=== PATIENT | female | born 1995 | race Caucasian/White ===

== ENCOUNTER 2020-04-28 10:30 | Inpatient (IN) | payer SELFPAY ==
[2014-04-05 14:41] VITALS: BMI 19.5
[2020-04-28] VITALS (52 sets, daily range): BP systolic 100–129; BP diastolic 54–83; PULSE 45–102; TEMP 36.4–37.1; O2SAT 91–100; BMI 25.6
[2020-04-28] MEDS: Lactated Ringers 1,000 ML 50 ML IV (11:00)
[2020-04-28 11:35] LABS: Absolute Lymphocyte Count 1.34 X10^3/uL (0.83-4.51); Absolute Neutrophil Count 7.4 X10^3/uL (2.0-7.7); Basophil# 0.04 X10^3/uL; Basophil% 0.4 % (0-1); Eosinophil# 0.02 X10^3/uL; Eosinophils% 0.2 % (0-5); Hematocrit 40.5 % (37-47); Hemoglobin 13.4 g/dL (12.0-15.0); Lymphocyte # 1.34 X10^3/ul (4.0); Lymphocyte % 14.1 % (19-41); Mean Corp Hgb Conc 33.1 g/dL (32-36); Mean Corpuscular Hgb 29.5 pg (27.0-32.0); Mean Platelet Vol. 11.8 fl (6.2-12.0); Monocyte% 6.3 % (0-10); NRBC Flagged by Analyzer 0 % (0-5); Neutrophil # 7.42 X10^3/uL (2.7-7.7); Neutrophil % 78.2 % (47-70); Platelet Count 173 K/mm3 (150-450); RBC Distribution Width CV 13.5 % (11.6-14.6); RBC Distribution Width SD 43.8 fl (35.1-43.9); Red Blood Count 4.55 M/mm3 (4.2-5.4); White Blood Count 9.5 K/mm3 (4.4-11.0)
--- NOTE | 2020-04-28 11:53 | HP.PCM_ITS ---
- Problem List (1) History of depression Status: Acute (2) History of anxiety Status: Acute (3) with 38 completed weeks gestation Status: Acute History Date of Admission: 04/28/20 Final JOSE: 05/07/20 Gestational age: 38 Weeks and 5 Days History of this : This is a 25 year-old, G [1], P [0], at 38.5 weeks gestation that presents for contractions starting last night and mild vaginal bleeding. Had intercourse last night and began cramping after. Had small amount of spotting and continued contractions this morning. Reports increasing pain and intensity with contractions. CE in triage this morning was 1cm/80/-1 and after watchful waiting made change to 3/85/-1. Positive movement. Uncomplicated course. Patient and would like minimal interventions and would like labor to progress naturally. Patient denies any fever, cough, shortness of breath. Denies any contact with COVID 19 positive individuals for herself or . Allergies No Known Allergies Allergy (Verified 04/13/20 12:38) Home Medications: Home Medications Lactobacillus Acidophilus [Acidophilus] 1 tablet PO DAILY 04/05/14 [place]-3 Fatty Acids/Fish Oil [[place] 3 Fish Oil Softgel] 1 each PO DAILY 04/05/14 Vits [Prenatabs FA] 1 tab PO DAILY 04/28/20 Smoking Status: Never smoker Alcohol: None NST - FHR Rate Baby A Baseline: 130 Variability:: Moderate Accelerations:: None Decelerations:: None NST Reactive:: Yes FHR Category:: Category I Uterine Activity:: Contractions every 2-4 minutes via TOCO History Past Pregnancies: Past Pregnancies Delivery Date Name GA/ Weeks Outcome Route Wt Sex Labor Length Anesthesia Delivery Location Provider FOB Labs: O negative Rubella non-immune Hep B- negative GBS negative 1 hr GCT normal HIV negative GC/CT negative Expected Delivery Method: Spontaneous Vaginal Review of Systems Constitutional: Denies: Chills, Fever, Weight Change Eyes: Denies: Blurred vision, Pain, Vision Change HEENT: Denies: Head Aches Cardiovascular: Denies: Chest Pain Respiratory: Denies: Cough, Shortness of Breath Gastrointestinal: Denies: Abdominal Pain Genitourinary: Denies: Dysuria Psychiatric: Reports: Anxiety - History of anxiety and depression, no medications for 2 years, Depression Hematologic/ Lymphatic: Denies: Easy Bleeding Physical Exam Vitals: Vital Signs Temp Pulse BP Pulse Ox 98.7 F 64 112/67 98 04/28/20 07:25 04/28/20 11:21 04/28/20 11:21 04/28/20 07:28 General: Alert, Oriented x3 Cardiovascular: Regular rate Lungs: Clear to auscultation, Normal air movement Abdomen: Soft, Non Tender Neurological: Cranial nerves II-XII grossly intact Estimated gestational size: Appropriate for gestational size Presentation: Cephalic - patient appears anxious Cervix Dilation (cm): 3 Station: -1 Effacement (%): 80 Assessment/Plan All Active Problems (This Medical Record has been edited. Action required.) History of depression (Acute) History of anxiety (Acute) with 38 completed weeks gestation (Acute) This is a 25 year-old, G [1], P [0], at 38.5 weeks gestational age with cervical change in early labor. Category 1 FHT P: Admit to labor and delivery Routine labs- GBS negative IV fluids per protocol Epidural for pain relief if patient desires Declines LARC Declines COVID 19 rapid screening. Patient aware that she will have to wear a mask at all time throughout stay. Voiced understanding. Did not want test due to hearing it was painful. Dr. Felton notified of admission to labor and delivery and is collaborating physician. Procedure Criteria COVID Risk Discussion: Declines COVID 19 rapid screening test due to pain during swab. Patient aware that she will be required to wear mask entire stay at hospital. Patient voices understanding.
--- NOTE | 2020-04-28 12:36 | PCM.PN.BLA ---
Progress Note Patient seen at bedside. Discussed plan of care. Patient desires minimal interventions and would like to allow labor pattern naturally. Unsure of pain control options but open to assistance. Patient wearing mask due to refusal of COVID 19 screening. Patient does not want screening due to pain of swab. Category I FHT Contractions 2-4 minutes palpating moderate A/P Continue with plan of care Epidural if desires Anticipate STROKE Vital Signs/Narrative: Vital Signs Pulse BP 04/28/20 11:21 64 112/67
--- NOTE | 2020-04-28 14:07 | PCM.PN.BLA ---
Progress Note Patient tearful and stated becoming more painful with contractions. Still requesting low interventions if possible. After a lot of reassurance and education, patient able to discuss plan of care. CE- 4/80/-1 able to palpate bag of water A/P at 38.5 gestation in early labor Continue plan of care with minimal interventions Discussed trying nipple stimulation at this time to assist with contraction pattern Will recheck in 3 hours and if no change will discuss possible A.R.O.M or Pitocin IV Epidural if indicated Plan of care discussed with Dr. Felton via phone and agrees STROKE Vital Signs/Narrative: Vital Signs Pulse BP 04/28/20 13:13 83 113/76 04/28/20 11:21 64 112/67
--- NOTE | 2020-04-28 20:15 | PCM.PN.BLA ---
Progress Note S:Patient up ambulating in room. Stated contractions feel more intense but still able to breathe through them with support from . O:Patient breathing well through contractions, tolerating CE well Category 1 tracing Contractions palpate moderate-strong CE- 7/90/0 bulging bag A/P Active Spontaneous labor Epidural placement if indicated Discussed NCB vs Epidural and patient wishes to think about NCB Continue with plan of care, minimal interventions Anticipate Dr. Felton updated and agrees with plan of care STROKE Vital Signs/Narrative: Vital Signs Temp Pulse BP Pulse Ox 04/28/20 19:16 98.1 F 51 L 121/60 H 100 04/28/20 18:19 85 112/78 04/28/20 17:12 61 106/70 04/28/20 17:11 97 04/28/20 16:20 113/82 H 100
[2020-04-28] MEDS: Lactated Ringers 500 ML 999 ML IV (20:25)
[2020-04-28] MEDS: fentaNYL-bupivacaine (epidural) 100 ML BAG EPIDURAL (21:03)
[2020-04-29] VITALS (43 sets, daily range): BP systolic 95–179; BP diastolic 54–80; PULSE 50–150; RESP 14–18; TEMP 36.5–37.1; O2SAT 96–99
[2020-04-29] MEDS: Lactated Ringers 1,000 ML 200 ML IV (01:03)
[2020-04-29] MEDS: Oxytocin 30 units/NS 500 ml 30 UNITS/500 ML IV.SOLN 334 UNITS IV (04:10)
--- NOTE | 2020-04-29 04:49 | PCM.OPRPT ---
Problem List (1) History of depression Status: Acute (2) History of anxiety Status: Acute (3) with 38 completed weeks gestation Status: Acute Report of Operation Date of Procedure: 04/29/20 Pre-Operative Diagnosis: Spontaneous labor, Term gestation Post-Operative Diagnosis: Same, with viable female infant Surgery/Procedure Performed:: - Complications none Vaginal Delivery Maternal Presentation: Active Labor 38.6 weeks gestation with contractions and vaginal spotting. Came into triage and made cervical change. Amniotic Membrane Rupture Type: Spontaneous Rupture of Membrane time: 350 Amniotic Fluid Description: Clear Final JOSE: 05/07/20 Final JOSE Source: US <20 weeks Gestational age: 38 Weeks and 6 Days Date of Procedure: 04/29/20 Pre-Operative Diagnosis: Spontaneous labor, Term gestation Post-Operative Diagnosis: same with viable female infant Surgery/ Procedure Performed: Spontaneous Vaginal Delivery Type of Anesthesia: Epidural Description of Procedure: Patient complete and began pushing. Amniotic sac still intact throughout pushing. S.R.O.M for large amount of clear fluid. Head delivered without difficulty, followed by anterior, then posterior shoulder. Vigorous female delivered without any force or delay over intact perineum. Infant placed immediately on maternal abdomen. The umbilical cord was clamped and cut after 90 second delay. The placenta was removed spontaneously with active management of third stage. Placenta was small, but normal appearing and intact with 3 vessel cord. Fundus was firm and bleeding was hemostatic. Right labial laceration repaired with 2-0 vicryl. Vaginal sweep was performed. Instruments and lap counts were correct. Presentation: Vertex, HUI Placental Delivery Description: Spontaneous Placenta Disposition: [facility] Cord Vessel Description: 3 Vessels Cord Entanglement: None Estimated Blood Loss: 250 (1 minute): 8 (5 minute): 9 Episiotomy Description: None Laceration: Vaginal Extension/lac - right labial laceration Medications given after delivery: IV Pitocin
[2020-04-29] MEDS: Ibuprofen 600 MG Tablet PO (20:30)
[2020-04-30] VITALS (8 sets, daily range): BP systolic 100–115; BP diastolic 63–73; PULSE 52–75; RESP 14–18; TEMP 36.9–37.1; O2SAT 97
--- NOTE | 2020-04-30 08:00 | NURSING ---
Patient declines administration of MMR vaccine. Given VIS information.
--- NOTE | 2020-04-30 08:42 | PCM.PN.OB ---
Patient Problems: Active and Suspected Problems (This Medical Record has been edited. Action required.) History of depression (Acute) History of anxiety (Acute) with 38 completed weeks gestation (Acute) Subjective: pain well controlled, average lochia, no N/V. Denies COBB or visual changes - Physical Exam Vitals/I&O's: Vital Signs Temp Pulse Resp BP Pulse Ox 98.6 F 56 L 14 115/71 99 04/30/20 03:50 04/30/20 03:50 04/30/20 03:50 04/30/20 03:50 04/29/20 06:25 Oxygen Delivery Method Room Air Weight: 61.507 kg Body Mass Index (BMI) 25.6 Intake and Output for Last 24 Hours 04/28/20 04/29/20 04/30/20 23:59 23:59 23:59 Intake Total 683.33 / 683.33 1940.00 / 1940.00 Output Total 2600 / 2600 1600 / 1600 Balance -1916.67 / -1916.67 340.00 / 340.00 General: Alert, Cooperative, No apparent distress Laboratory Results 04/29/20 08:20: Screen NEGATIVE, Baby's Blood Type A POSITIVE, Baby's YOSI NEGATIVE Current Medications Acetaminophen (Tylenol) 1,000 mg PO Q8H PRN PRN PRN Reason: Pain Score 1-3/10 Bisacodyl (Dulcolax) 10 mg RECTAL UD PRN PRN Reason: If no BM Dibucaine (Dibucaine) 1 applic TOPICAL TID PRN PRN; Protocol PRN Reason: Discomfort Hydrocortisone (Hytone) 1 applic TOPICAL TID PRN PRN; Protocol PRN Reason: Discomfort Ibuprofen (Motrin) 600 mg PO Q6H PRN PRN PRN Reason: Pain Score 1-3/10 Last Admin: 04/29/20 20:30 Dose: 600 mg Documented by: Methylergonovine Maleate (Methergine) 0.2 mg IM X1 PRN PRN Reason: Excess bleeding/uterine atony Ondansetron HCl (Zofran) 4 mg IV Q4H PRN PRN PRN Reason: Nausea Oxycodone HCl (Oxyir) 5 - 10 mg PO Q4H PRN PRN PRN Reason: Pain Score 4-10/10 Multivit/Folic Acid/Iron (Prenatabs Fa) 1 tablet PO DAILY KHUSHBU Last Admin: 04/29/20 11:23 Dose: Not Given Documented by: Senna/Docusate Sodium (Senokot-S, Jackie-Colace) 1 - 2 tablet PO DAILY PRN PRN PRN Reason: Constipation Simethicone (Mylicon) 80 mg PO PCHS PRN PRN Reason: Indigestion/Stomach pain Sodium Chloride () 5 - 15 ml IV UD PRN PRN Reason: SALINE FLUSH Medical Necessity - Tobacco Use Smoking Status: Never smoker Assessment/Plan All Active Problems (This Medical Record has been edited. Action required.) History of depression (Acute) History of anxiety (Acute) with 38 completed weeks gestation (Acute) PPD#1 doing well routine care likely home tomorrow is
--- NOTE | 2020-04-30 15:45 | DCINST_ITS ---
Discharge Diet: No Restrictions Discharge Activity: Return to Normal Activity, May not drive while taking narcotic pain medications., May Shower May resume sexual activity in: 4-6 weeks Additional Activity Instructions:: Nothing in the vagina for 4-6 weeks. You may return to work/school in 6 weeks. Call your doctor if your incision/area has: Continuous Slow Oozing, Sudden Increased Bleeding, Increased Pain/ Swelling, Increased Redness, Foul Smelling Discharge Additional Instructions: If you experience any of the following, contact your healthcare provider. * Bleeding that soaks a pad every hour for 2 hours * Fever 100.4 or higher * Unrelieved incision or abdominal pain * Swelling, redness, discharge or bleeding from your incision or episiotomy site * Your incision begins to separate * Problems urinating (including inability to urinate or burning while urinating). * Visual changes * Severe headache * Flu-like symptoms * Pain or redness in one of both of your breasts * Pain, warmth, tenderness or swelling in your legs, especially the calf area * Frequent nausea and vomiting * Symptoms of depression or anxiety If you experience any of the following, call 911 or go to the nearest Emergency Room. * Chest pain * Problems breathing * Seizure activity * Partial or complete paralysis of a body part, slurred speech, weakness or drooping of the face, or a sudden inability to walk or hold your balance Allergies/Adverse Reactions: Allergies No Known Allergies Allergy (Verified 04/13/20 12:38) Medications to take at Discharge Lactobacillus Acidophilus [Acidophilus] 1 tablet PO DAILY 04/05/14 [place]-3 Fatty Acids/Fish Oil [[place] 3 Fish Oil Softgel] 1 each PO DAILY 04/05/14 Vits [Prenatabs FA ] 1 tab PO DAILY 04/28/20 Ibuprofen [Motrin] 600 mg PO Q6H PRN #30 tab 04/30/20 The following prescriptions were given: Ibuprofen [Motrin] 600 mg PO Q6H PRN #30 tab PRN Reason: Pain Transmission Status: Pending to [facility] Please Follow Up With: Hoda Hogan, LORE - [phone] When: Call to make an appointment with your provider's office in 6 weeks. If you had elevated Blood Pressure or 4th degree laceration you will need to be seen in 2 weeks. Test Results: Test results from this visit will be discussed in further detail at your follow- up appointment, if applicable.
--- NOTE | 2020-04-30 18:00 | CASEMGMT ---
Social Work Brief Assessment - Labor and Delivery Unit Refer documentation below for further details. Date of Referral/Notification: 04/30/2020 Time of Referral: 17:45 Referred By: NURSE Reason for Referral: HISTORY DEPRESSION AND ANXIETY. FIRST TIME MOM Date of Intervention: 04/30/2020 Time of Intervention: 18:00 Informant: Medical record and mother of baby (MOB) Assessment: MET WITH MOB AND FATHER OF BABY (FOB) IN ROOM. MOB NURSING BABY GIRL, GOVIND UPON ENTERING ROOM. MOB AND FOB OK WITH COMPLETING ASSESSMENT AT THIS TIME. INTRODUCED ROLE AND REASON FOR REFERRAL. MOB SPOKE OPENLY ABOUT HISTORY ANXIETY/DEPRESSION. MOB REPORTS SHE AND FOB HAVE BEEN FOR 4 YEARS AND STARTED COUNSELING SHORTLY AFTER GETTING . MOB REPORTS STILL FOLLOWS WITH COUNSELOR AT [facility] AND HAS APPOINTMENT ALREADY SCHEDULED IN A FEW WEEKS. MOB AND FOB REPORT GOOD SUPPORT FROM FAMILY, FRIENDS, AND SMALL GROUP AT [facility]. FOB AND MOB REPORT FRIENDS AND FAMILY MEMBER RECENTLY HAVE HAD CHILDREN AND KNOW THEY CAN REACH OUT TO THEM IF NEEDED. MOB AND FOB REPORT TO HAVE ALL NEEDS MET FOR BABY. EDUCATION PROVIDED ON RESOURCES AND DISCUSSED HELP ME GROW. MOB AND FOB DECLINE NEED FOR REFERRALS AT THIS TIME. MOB AND FOB VERBALIZED FEELINGS OF ANXIETY BEING FIRST TIME PARENTS. MUCH SUPPORT AND ENCOURAGEMENT PROVIDED. REVIEWED EDUCATIONAL HANDOUTS ON POST DEPRESSION, SAFE SLEEPING AND SHAKEN BABY SYNDROME. FOB AND MOB REPORT NO QUESTIONS OR CONCERNS. UPDATED NURSING ON THE ABOVE. PLAN FOR DISCHARGE THIS EVENING. Plan: HOME WITH RESOURCES PROVIDED No further needs requested or indicated. -Constance Gaviria, SWITCHING OPERATOR, RESEARCH AND DEVELOPMENT DIRECTOR
== END 2020-04-30 18:35 | disposition home or self-care (01) | DRG 807 ==
LOC: WPOUT 10:32 → WP 04-29 04:17
PROVIDERS: Admitting Provider Advanced Practice Midwife; Visit Provider Advanced Practice Midwife
DX: O70.0 First degree perineal laceration during delivery (principal); Z3A.38 38 weeks gestation of pregnancy; Z37.0 Single live birth
CPT/HCPCS: 59025; 59050; 85025; 85461; 86850; 86870; 86900; 86901; 90384; 99218; J7120; G0378; J2790

== ENCOUNTER 2023-05-20 02:05 | Inpatient (IN) | payer SELFPAY ==
[2023-05-20] VITALS (28 sets, daily range): BP systolic 107–134; BP diastolic 62–80; PULSE 58–87; RESP 16–18; TEMP 36.3–37.2; O2SAT 96–100
[2023-05-20 02:45] LABS: Absolute Lymphocyte Count 2.36 X10^3/uL (0.83-4.51); Absolute Neutrophil Count 8.3 X10^3/uL (2.0-7.7); Basophil# 0.07 X10^3/uL; Basophil% 0.6 % (0-1); Eosinophil# 0.07 X10^3/uL; Eosinophils% 0.6 % (0-5); Hematocrit 39.3 % (37-47); Hemoglobin 13.3 g/dL (12.0-15.0); Lymphocyte # 2.36 X10^3/ul (0.83-4.51); Lymphocyte % 20.1 % (19-41); Mean Corp Hgb Conc 33.8 g/dL (32-36); Mean Corpuscular Hgb 29.4 pg (27.0-32.0); Mean Corpuscular Volume 86.8 fL (81-99); Mean Platelet Vol. 11.7 fl (6.2-12.0); Monocyte# 0.82 X10^3/uL; NRBC Flagged by Analyzer 0 % (0-5); Neutrophil # 8.31 X10^3/uL (2.7-7.7); Neutrophil % 70.5 % (47-70); Platelet Count 182 K/mm3 (150-450); RBC Distribution Width CV 13.8 % (11.6-14.6); RBC Distribution Width SD 43.4 fl (35.1-43.9); Red Blood Count 4.53 M/mm3 (4.2-5.4); White Blood Count 11.8 K/mm3 (4.4-11.0)
[2023-05-20 03:40] LABS: Syphilis Antibodies Non-reactive
[2023-05-20] MEDS: Oxytocin 15 Units/NS 250ml 15 UNITS/250 ML IV.SOLN 83 UNITS IV (06:38)
[2023-05-20] MEDS: Oxytocin 10 UNITS/ML Vial IM (06:45)
[2023-05-20] MEDS: Methylergonovine 0.2 MG/ML Ampul IM (06:47)
--- NOTE | 2023-05-20 07:03 | PCM.HP.OB ---
HPI - General General Date of Admission: 05/20/23 Date of Service: 05/20/23 HPI Narrative GLORIA LAWTON, is a 28 F who presents with ctxs. Maternal Data Information Final JOSE: 05/22/23 Gestational age: 39&5 PFSH PFS Medical History Anxiety Depression Inguinal hernia depression Home Medications acidophilus 25 million cell-pectin, citrus 100 mg tablet 1 tab PO DAILY 04/05/14 [History Last Taken 04/27/20 10:00] omega-3 fatty acids-fish oil 684 mg-1,200 mg capsule,delayed release (One-Per-Day [place]-3) 1 ea PO DAILY 04/05/14 [History Last Taken 04/27/20 10:00] vits,calcium no.78-iron fumarate-folic acid 29 mg-1 mg tablet 1 tab PO DAILY 04/28/20 [History Last Taken 04/27/20 10:00] Allergy/AdvReac Type Severity Reaction Status Date / Time No Known Allergies Allergy Verified 04/13/20 12:38 Social History Smoking Status: Never smoker History Elective abortions Hx Para 1 Spontaneous abortions Hx # Term Pregnancies Ectopic pregnancies Hx # Pregnancies Multiple births # of living children Vital Signs Vital Signs Vital Signs: 05/20/23 06:10 05/20/23 06:10 05/20/23 06:10 Temperature Temperature Source Temporal Pulse Rate 70 Blood Pressure BP Systolic BP Diastolic Pulse Ox 96 05/20/23 06:10 05/20/23 06:12 05/20/23 06:12 Temperature 97.3 F L Temperature Source Pulse Rate 87 Blood Pressure 107/63 BP Systolic 107 BP Diastolic 63 Pulse Ox 05/20/23 06:15 05/20/23 06:15 Temperature Temperature Source Pulse Rate 67 Blood Pressure BP Systolic BP Diastolic Pulse Ox 96 Weight Weight: 142 lb 10.225 oz Labs Labs Labs: Blood Type O NEGATIVE Antibody Screen NEGATIVE Hct 39.3 % (37-47) Hgb 13.3 g/dL (12.0-15.0) Syphilis Total Ab Non-reactive Rhogam given: Yes See [facility] H&P Assessment & Plan (1) 39 weeks gestation of : COMMENT: @ 39&5 PLAN: Patient admitted to labor & delivery Patient then had an uncomplicated - see delivery note
--- NOTE | 2023-05-20 07:06 | EX.PCM.OBRPT ---
Maternal Data Information Final JOSE: 05/22/23 Gestational age: 39&5 Vaginal Delivery Maternal Presentation Maternal Presentation: Active Labor Operative Information Date of Procedure: 05/20/23 Pre-Operative Diagnosis: Labor Post-Operative Diagnosis: Labor Surgery / Procedure Performed: Spontaneous Vaginal Delivery Type of Anesthesia: Local with 1% Lidocaine Estimated Blood Loss: 400ml Findings Description of Procedure: Patient pushing on her side when C/C/+1. She pushed well to deliver the head. head gently guided to allow delivery of anterior and posterior shoulders. No excess traction placed on head. Body delivered and 3VC clamped & cut in delayed fashion. Placenta delivered with gentle traction and good uterine tone obtained. Presentation: [place] Amniotic Membrane Rupture Type: Spontaneous Amniotic Fluid Description: Clear Placental Delivery Description: Expressed Placenta Disposition: [facility] Specimen(s) Removed: Placenta Cord Vessel Description: 3 Vessels Cord Entanglement: Around neck x 1, loose Nuchal Cord Compression: Without compression A Gender: Female (1 minute): 8 (5 minute): 9 Delayed Cord Clamping: Yes Post Vaginal Delivery Medications Given After Delivery: IV Pitocin and IM Pitocin Episiotomy Description: None Laceration: 1st degree (perineal - repaired with 3-0 vicryl) Complication Complications: None
[2023-05-20] MEDS: Lidocaine 1% (20 ml mdv) 20 ML Vial INFILT (07:16)
[2023-05-20] MEDS: Ibuprofen 600 MG Tablet PO ×2 (07:48→17:57)
--- NOTE | 2023-05-20 10:50 | CASEMGMT ---
Sw Sw presented to bedside and introduced self to mother of baby (MOB) and father of baby (FOB). Sw explained sw role and stated that sw would be discussing general questions and mental health with MOB. MOB was sitting in chair with baby, name undecided at this time, feeding. FOB on couch. MOB appeared to be overwhelmed, understandably so following delivery of baby earlier this morning. Sw offered and agreed to come back at later time to complete assessment and to provide support. Sw assessed for any immediate needs or concerns, parents denied. Ozzie Wiley, TUB CHUCKER, INTERNIST MEDICAL DOCTOR MD
[2023-05-20] MEDS: Acetaminophen 500 MG Tablet 1000 MG PO (23:42)
[2023-05-21 03:47] VITALS: O2SAT 97
[2023-05-21 03:48] VITALS: BP 108/59; PULSE 75
[2023-05-21 03:55] VITALS: BP 108/59; PULSE 74; RESP 16; TEMP 36.7; O2SAT 97
[2023-05-21] MEDS: Ibuprofen 600 MG Tablet PO (07:34)
--- NOTE | 2023-05-21 08:00 | PCM.PN.OB ---
Subjective Subjective Patient seen at bedside. Ambulating and voiding without difficulty. Denies headache, dizziness, CP, or SOB. Lochia decreasing. with minimal support. Desires discharge home today. Objective Data Objective Data Vital Signs: Vital Signs Temp Pulse Resp BP Pulse Ox O2 Del Method 98.1 F 74 16 108/59 L 97 Room Air 05/21/23 03:55 05/21/23 03:55 05/21/23 03:55 05/21/23 03:55 05/21/23 03:55 05/21/23 03:55 Oxygen Delivery Method Room Air Weight: 142 lb 10.225 oz Intake & Output: Intake and Output for Last 24 Hours 05/19/23 05/20/23 05/21/23 23:59 23:59 23:59 Intake Total 250 / 250 Output Total 1300 / 1300 Balance -1050 / -1050 Lab / Micro Data Result Diagrams: 05/20/23 02:25 Labs: Laboratory Results - last 24 hr 05/20/23 13:37: Screen NEGATIVE, Baby's Blood Type A POSITIVE, Baby's YOSI NEGATIVE ROS Eyes Eyes: Denies blurry vision, change in vision or spots in vision ENT HEENT: Denies dizziness or headache(s) Cardiovascular Cardiovascular: Denies abdominal pain, chest pain or dyspnea Respiratory/Chest Respiratory/Chest: Denies cough, dyspnea, shortness of breath at rest or shortness of breath with exertion Gastrointestinal Gastrointestinal: Denies abdominal pain, diarrhea or vomiting Genitourinary Genitourinary: Denies change in urinary stream, difficulty urinating or dysuria Musculoskeletal Musculoskeletal: Reports none Integumentary Integumentary: Denies rash Neurologic Neurologic: Denies dizziness, headache(s), memory loss or weakness Physical Exam Const alert and no apparent distress General Appearance: cooperative and comfortable Exam Limitations: no limitations HEENT normocephalic Eyes General Eye: normal appearance of both eyes Neck full ROM General: normal visual inspection Chest Chest: symmetrical chest wall rise Resp normal respiratory effort and normal air movement Effort and Inspection: symmetric chest movement Auscultation: clear to auscultation bilaterally Cardio regular rate and regular rhythm GI normal to inspection, nondistended, normoactive bowel sounds Back/Spine normal ROM Extremity full ROM and no calf tenderness General Extremity: normal exam except as noted Skin no rashes or lesions noted Neuro CN's II-XII intact bilaterally Psych mental status grossly normal Assessment & Plan (1) (spontaneous vaginal delivery): (2) Care and examination of lactating mother: PLAN: Plan PPD 1 Routine care support D/C home with follow up in office
--- NOTE | 2023-05-21 08:03 | DCINST_ITS ---
Discharge Instructions Diet Discharge Diet: No restrictions Activity Discharge Activity: Return to Normal Activity, May Shower and May Take a Tub Bath May resume sexual activity in: 4-6 weeks Weight Bearing Status: Weight bearing as tolerated Dressing / Incision Call your doctor if you observe: Fever of 101 or Higher, Inability to urinate, Using more than 1 pad per hour, Shortness of breath, Dizziness, Swelling in the ankles, Chest pain, Calf discomfort and Uncontrolled pain Follow Up Care Please Follow Up With: Hoda Hogan CNM When: Within 10 days Test Results: Test results from this visit will be discussed in further detail at your follow- up appointment, if applicable. Discharge Plan Admission Admit Date/Time: 05/20/23 02:05 Primary Reason for Your Visit: Labor and Delivery Attending Provider: Westley Felton Primary Care Provider: Care Physician,Rupal Primary Discharge Orders/Prescriptions Prescriptions: Continued vit,[id number] 1 TABLET tablet 1 tab PO DAILY Discontinued acidophilus-pectin, citrus 1 TABLET tablet 1 tab PO DAILY One-Per-Day [place]-3 1 EACH capsule,delayed release(DR/EC) 1 ea PO DAILY Referrals / Follow Up: Care Physician,No Primary [Primary Care Provider] - Disposition Disposition (needs filled in before D/C Order can be placed): Home, Self Care
--- NOTE | 2023-05-21 10:19 | CASEMGMT ---
Social Work Assessment Labor and Delivery Unit Patient Address: [address] [place] [address] Phone number: [phone] Date of Referral: 05/20/23 Time of Referral:? 741 Referred By: Westley Felton Date of Intervention: ??05/21/23 Time of Intervention:? 929 Reason for Referral:? History of PPD, depression History obtained from: medical records and mother of baby (ESTELA)Ronda and father of baby (FOB) Gustavo. Household composition: Residing at home is ESTELA, GIRISH, baby girl, Kriss and big sister Zoey (: 04/28/2020) Patient's parent/guardian status:? ESTELA reports that she and GIRISH have been together for seven years. They met each other at a green party, and then started dating a year later. After dating for four months GIRISH proposed and they were within the year. Medical History: This is second and delivery for ESTELA. She delivered baby via vaginal delivery. ESTELA received routine care with [facility], no medical concerns. Baby was born weighing 2790 grams, apgars were 8 and 9. ESTELA is and reports it is going well. Educational Status: ESTELA reports that she completed the 8th grade. GIRISH attended some high school, but ESTELA is not sure what grade he completed. ESTELA denies any learning disabilities, is able to read, write and comprehend. Financial Status: GIRISH is employed for a [employer]. 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 Infant Supplies:??ESTELA reports that they have been able to obtain all necessary baby items, including crib, car seat, clothes, diapers and wipes. ESTELA states that she saved all the clothes from baby's older sister. Childcare/Caregiver(s):? ESTELA will be primary caregiver at home, along with FOB when he is not at work. ESTELA states that she has lots of family members who are also able to help care for baby when required. ESTELA states that she has a sister who has been helping with [facility] while she has been in the hospital. Transportation:?? Family has reliable transportation, no barriers at this time. Programs/Agencies Involved: ?ESTELA denies linkage to financial community resources/ supports at this time.?Elias discussed benefits of getting connected to [employer] and provided brochure for MOB to review. ESTELA reports that she will look it over and will consider getting connected on her own once they are settled at home. Children Services/Legal Issues:??? None reported at this time, no prior involvement. 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 MOB states that her symptoms included not wanting anyone else to hold or care for the baby at that time. MOB states that at this time she feels much more calm and prepared. Sw completed PHQ-9, MOB scored 9- indicative of minimal depression. ESTELA is already connected to counseling supports through [facility] in [place]. MOB states that she already has an inperson appointment scheduled for May and ongoing regular phone sessions to [facility]. Sw discussed signs and symptoms of baby blues and post depression with FOB, encouraged him to continue to provide ongoing support and encouragement to MOB. FOB states that he is extremely supportive of MOB continuing her counseling sessions at [facility]. Literature on Post Depression provided to MOB to review. ? Substance Use History:?MOB denies. ? Family History:?MOB denies family history of substance use. ??Drug Screens: None documented. ?? Family/Social Stressors:? MOB reports that they recently moved, and this was a stressor about a month ago due to being 8 months and moving. MOB states that she feels more calm at their new home and this is not a stressor any more. Support Systems: MOB indicates that they have a lot of friends and family members who are supportive and able to assist in caring for baby and older sister when needed. ESTELA also states that she has friends and family that she is able to talk to about her depression and this is extremely helpful. Depression/Shaken Baby/Safe Sleeping; Sw provided education regarding shaken baby syndrome. MOB acknowledged that she knows to never shake a baby. Sw and MOB also discussed ABCs of safe sleep. MOB familiar with what items/ objects not to put in baby's safe sleep space. MOB also stated she has talked to her older daughter about not putting blankets on the baby. ?? ASSESSMENT:? MOB interactive and talkative during sw assessment. MOB prepared to take baby home and is already prepared to address any mental health issues or concerns that may arise. FOB extremely supportive and involved with care of MOB and baby. Parents were receptive to sw involvement and support. ?? PLAN:? ?No other services requested or indicated. MOB and baby to be discharged today. Ozzie Wiley, [employer] OPERATOR, HELPER SHEAR OPERATOR
[2023-05-21 10:20] VITALS: BP 121/64; PULSE 82; RESP 16; TEMP 36.3; O2SAT 95
[2023-05-21 10:31] VITALS: BP 121/64; PULSE 69; O2SAT 91; O2SAT 97
== END 2023-05-21 12:15 | disposition home or self-care (01) | DRG 807 ==
LOC: WPOUT 02:06 → WP 02:06
PROVIDERS: Admitting Provider Obstetrics & Gynecology; Referring Provider Obstetrics & Gynecology; Visit Provider Obstetrics & Gynecology
DX: O69.81X0 Labor and delivery complicated by cord around neck, without compression, not applicable or unspecified (principal); Z37.0 Single live birth; O70.0 First degree perineal laceration during delivery; Z3A.39 39 weeks gestation of pregnancy
CPT/HCPCS: 59025; 59050; 85025; 85461; 86780; 86850; 86900; 86901; 99221; G0378; J2790